=== PATIENT | male | born 1960 | race Caucasian/White ===

== ENCOUNTER 2017-07-02 15:52 | Emergency (ER) | payer BC ==
--- NOTE | 2017-07-02 15:58 | EDM.PDOC ---
ED HPI GENERAL MEDICAL PROBLEM - General Chief Complaint: Upper Extremity Injury/Pain Stated Complaint: R SHOULDER INJURY Time Seen by Provider: 07/02/17 15:57 - History of Present Illness INITIAL COMMENTS - FREE TEXT/NARRATIVE: 49-year-old male presents emergency room with right shoulder pain. The patient shortly before arrival thought he dislocated his shoulder he managed to get back into the place it when into place with a pretty loud and perceptive thump he felt a little better after this. The patient has had right shoulder problems over the last year he's been to physical therapy and this seemed to help he reinjured it but this got better pretty quickly. This evening the patient was working with a bowl then turned on him and started coming after him the patient thought his arm went up I actually did see the video this and it's remarkable that the patient does not have any other injuries. The patient did fall backwards and had his arm up at the time the bowl did not go or the patient or hit him with its extremities. The patient does not have chest pain chest pressure no abdominal pain or discomfort. He did not hit his head no loss of consciousness other 3 extremities are otherwise doing well. Right Shoulder Pain Score (Numeric/FACES): 8 - Related Data Allergies Allergy/AdvReac Type Severity Reaction Status Date / Time No Known Allergies Allergy Verified 07/02/17 16:03 Home Meds: Home Meds . [No Known Home Meds] 07/02/17 [History] Past Medical History - Past Health History Medical/Surgical History: Denies Medical/Surgical History Social & Family History - Tobacco Use Second Hand Smoke Exposure: No - Alcohol Use Days Per Week of Alcohol Use: 1 Number of Drinks Per Day: 1 Total Drinks Per Week: 1 - Recreational Drug Use Recreational Drug Use: No Review of Systems - Review of Systems Review Of Systems: See Below Constitutional: Reports: No Symptoms Eyes: Reports: No Symptoms Nose: Reports: No Symptoms Mouth/Throat: Reports: No Symptoms Respiratory: Reports: No Symptoms Cardiovascular: Reports: No Symptoms GI/Abdominal: Reports: No Symptoms Genitourinary: Reports: No Symptoms Musculoskeletal: Reports: Shoulder Pain. Denies: Arm Pain, Leg Pain Neurological: Reports: No Symptoms ED EXAM, GENERAL - Physical Exam Exam: See Below Exam Limited By: No Limitations General Appearance: Alert, No Apparent Distress Head: Atraumatic, Normocephalic Neck: Normal Inspection, Supple, Non-Tender, Full Range of Motion Respiratory/Chest: No Respiratory Distress, Lungs Clear, Normal Breath Sounds Cardiovascular: Regular Rate, Rhythm, No Edema, No Murmur Extremities: Other (He has discomfort over his right shoulder other extremities are otherwise unremarkable. Close aches amylase to the right upper to be shows normal neurologic and vascular status however he does not want to move his shoulder because it hurts. Passive range of motion with knee support he was shoulder is achieved to about 50% of his normal external rotation internal rotation is normal I can gently bring his arm up to about 60 abduction and then he starts to develop some discomfort. It was not pushed beyond this. He has no palpatory discomfort over the clavicle his shoulder it is not tender with palpation no obvious deformity) Course - Vital Signs Last Recorded V/S: Last Vital Signs Temp 37.2 C 07/02/17 15:57 Pulse 84 07/02/17 15:57 Resp 18 07/02/17 15:57 BP 170/109 H 07/02/17 15:57 Pulse Ox 100 07/02/17 15:57 - Orders/Labs/Meds Orders: Active Orders 24 hr Category Date Time Status Shoulder Comp Rt [CR] Stat Exams 07/02/17 16:07 Taken Meds: Medications Discontinued Medications Generic Name Dose Route Start Last Admin Trade Name Vladimir PRN Reason Stop Dose Admin Ketorolac Tromethamine 30 mg 07/02/17 16:12 07/02/17 16:19 Toradol IM 07/02/17 16:13 30 mg ONETIME ONE Administration - Re-Assessments/Exams Free Text/Narrative Re-Assessment/Exam: 07/02/17 18:05 X-ray examination shoulder shows no acute fracture dislocation good alignment of the shoulder. The patient will be placed in a sling. He is doing much better after receiving Toradol. He thinks he will do just fine on ibuprofen in the sling he agrees to follow-up in the clinic early this next week. Strong consideration should be given to MRI of the shoulder. Departure - Departure Time of Disposition: 18:06 Disposition: Home, Self-Care 01 Clinical Impression: Right shoulder injury - Discharge Information Referrals: Curly Elena MD [Primary Care Provider] - Forms: ED Department Discharge Additional Instructions: Return to the emergency room with any questions problems or worsening symptoms. Wear the sling pretty much all the time. Ibuprofen up to 800 mg 3 times daily with meals for discomfort. Follow-up in the clinic on Tuesday or Tuesday. - My Orders Last 24 Hours: My Active Orders 07/02/17 16:07 Shoulder Comp Rt [CR] Stat - Assessment/Plan Last 24 Hours: My Active Orders 07/02/17 16:07 Shoulder Comp Rt [CR] Stat
[2017-07-02 16:02] VITALS: BP 170/109
[2017-07-02] MEDS ORDERED: Ketorolac 30 MG/ML SDV IM ONE (16:12)
--- NOTE | 2017-07-03 08:58 | CR ---
Right shoulder: Three views of the right shoulder were obtained. Comparison: No previous study. Glenohumeral joint appears within normal limits. Mild inferior spurring is seen off the acromioclavicular joint. No acute fracture or dislocation is seen. Impression: 1. Mild inferior spurring off the acromioclavicular joint. 2. Three-view right shoulder study is otherwise unremarkable. Diagnostic code #2
== END 2017-07-02 18:32 | disposition home or self-care (01) ==
LOC: JD.ED 15:52
DX: S49.91XA Unspecified injury of right shoulder and upper arm, initial encounter (principal); W19.XXXA Unspecified fall, initial encounter
CPT/HCPCS: 73030; 96372; 99284; J1885

== ENCOUNTER 2017-08-03 11:38 | Emergency (ER) | payer BC ==
--- NOTE | 2017-08-03 12:31 | EDM.PDOC ---
ED HPI GENERAL MEDICAL PROBLEM - General Chief Complaint: Cardiovascular Problem Stated Complaint: HIGH BP Time Seen by Provider: 08/03/17 12:30 Source of Information: Reports: Patient - History of Present Illness INITIAL COMMENTS - FREE TEXT/NARRATIVE: Patient is here for evaluation of elevated blood pressure. He states that he has always been "borderline" but he has never been on medication for this. Denies any history of MIs or arrhythmias. Patient states that he was at work today at [employer] and did not feel right so one of his coworkers who is also a claim manager checked his blood pressure and it was quite high so he went to see his PCP. He was sent from the clinic to the emergency room for elevated blood pressure 180/100. Patient currently denies any symptoms. He has no shortness of breath or chest pain doesn't feel he had a bit of chest pain yesterday. - Related Data Allergies Allergy/AdvReac Type Severity Reaction Status Date / Time No Known Allergies Allergy Verified 08/03/17 11:49 Home Meds: Home Meds Lisinopril 10 mg PO DAILY #30 tablet 08/03/17 [Rx] Past Medical History - Past Health History Medical/Surgical History: Denies Medical/Surgical History Cardiovascular History: Reports: Heart Murmur Respiratory History: Reports: Sleep Apnea Musculoskeletal History: Reports: Other (See Below) Other Musculoskeletal History: Shoulder problems- goes to PT - Past Surgical History HEENT Surgical History: Reports: Tonsillectomy Social & Family History - Family History Family Medical History: Noncontributory - Tobacco Use Smoking Status *Q: Never Smoker Second Hand Smoke Exposure: No - Caffeine Use Caffeine Use: Reports: Coffee - Alcohol Use Days Per Week of Alcohol Use: 1 Number of Drinks Per Day: 1 Total Drinks Per Week: 1 - Recreational Drug Use Recreational Drug Use: No ED ROS GENERAL - Review of Systems Review Of Systems: See Below Constitutional: Denies: Fever, Chills, Malaise, Weakness, Fatigue HEENT: Reports: No Symptoms Respiratory: Reports: No Symptoms Cardiovascular: Reports: Blood Pressure Problem, Palpitations. Denies: Chest Pain, Dyspnea on Exertion, Edema, Lightheadedness GI/Abdominal: Reports: No Symptoms Musculoskeletal: Reports: Shoulder Pain (Currently in PT for right shoulder injury) Skin: Reports: No Symptoms ED EXAM, GENERAL - Physical Exam Exam: See Below Exam Limited By: No Limitations General Appearance: Alert, WD/WN Throat/Mouth: Normal Inspection, Normal Oropharynx Head: Atraumatic, Normocephalic Neck: Normal Inspection, Supple, Non-Tender Respiratory/Chest: No Respiratory Distress, Lungs Clear, Normal Breath Sounds Cardiovascular: Normal Peripheral Pulses, Regular Rate, Rhythm, Systolic Murmur (I/) Peripheral Pulses: 2+: Posterior Tibial (L), Posterior Tibial (R) Neurological: Alert, Oriented Psychiatric: Normal Affect, Normal Mood Skin Exam: Warm, Dry, Intact EKG INTERPRETATION EKG Date: 08/03/17 Time: 12:00 Rhythm: NSR Rate (Beats/Min): 57 Course - Vital Signs Last Recorded V/S: Last Vital Signs Temp 97 F 08/03/17 11:47 Pulse 55 L 08/03/17 11:47 Resp 16 08/03/17 11:47 BP 180/107 H 08/03/17 11:47 Pulse Ox 97 08/03/17 11:47 - Orders/Labs/Meds Orders: Active Orders 24 hr Category Date Time Status EKG 12 Lead [EKG Documentation Completion] [RC] STAT Care 08/03/17 11:58 Active Labs: Laboratory Tests 08/03/17 08/03/17 08/03/17 Range/Units 11:52 11:52 11:52 WBC 6.68 (4.23-9.07) K/mm3 RBC 5.00 (4.63-6.08) M/mm3 Hgb 15.8 (13.7-17.5) gm/L Hct 44.6 (40.1-51.0) % MCV 89.2 (79.0-92.2) fl MCH 31.6 (25.7-32.2) pg MCHC 35.4 (32.2-35.5) g/dl RDW Std Deviation 40.1 (35.1-43.9) fL Plt Count 157 L (163-337) K/mm3 MPV 10.5 (9.4-12.3) fl Neutrophils % (Manual) 74 H (40-60) % Band Neutrophils % 0 (0-10) % Lymphocytes % (Manual) 17 L (20-40) % Atypical Lymphs % 1 % Monocytes % (Manual) 7 (2-10) % Eosinophils % (Manual) 1 (0.8-7.0) % Basophils % (Manual) 0 L (0.2-1.2) Platelet Estimate Adequate Plt Morphology Comment Normal RBC Morph Comment Normal Sodium 138 (136-145) mEq/L Potassium 3.9 (3.5-5.1) mEq/L Chloride 102 (98-107) mEq/L Carbon Dioxide 26 (21-32) mEq/L Anion Gap 13.9 (5-15) BUN 19 H (7-18) mg/dL Creatinine 1.0 (0.7-1.3) mg/dL Est Cr Clr Drug Dosing 83.14 mL/min Estimated GFR (MDRD) > 60 (>60) mL/min BUN/Creatinine Ratio 19.0 H (14-18) Glucose 93 (74-106) mg/dL Calcium 9.1 (8.5-10.1) mg/dL Magnesium 1.8 (1.8-2.4) mg/dl Total Bilirubin 0.5 (0.2-1.0) mg/dL AST 35 (15-37) U/L ALT 57 (16-63) U/L Alkaline Phosphatase 89 (46-116) U/L Troponin I < 0.017 (0.00-0.056) ng/mL Total Protein 7.2 (6.4-8.2) g/dl Albumin 3.7 (3.4-5.0) g/dl Globulin 3.5 gm/dL Albumin/Globulin Ratio 1.1 (1-2) Urine Color (Yellow) Urine Appearance (Clear) Urine pH (5.0-8.0) Ur Specific [place] (1.005-1.030) Urine Protein (Negative) Urine Glucose (UA) (Negative) Urine Ketones (Negative) Urine Occult Blood (Negative) Urine Nitrite (Negative) Urine Bilirubin (Negative) Urine Urobilinogen (0.2-1.0) Ur Leukocyte Esterase (Negative) Urine RBC (0-5) /hpf Urine WBC (0-5) /hpf Ur Epithelial Cells (0-5) /hpf Urine Bacteria (FEW) /hpf Urine Mucus (FEW) /hpf 08/03/17 Range/Units 13:00 WBC (4.23-9.07) K/mm3 RBC (4.63-6.08) M/mm3 Hgb (13.7-17.5) gm/L Hct (40.1-51.0) % MCV (79.0-92.2) fl MCH (25.7-32.2) pg MCHC (32.2-35.5) g/dl RDW Std Deviation (35.1-43.9) fL Plt Count (163-337) K/mm3 MPV (9.4-12.3) fl Neutrophils % (Manual) (40-60) % Band Neutrophils % (0-10) % Lymphocytes % (Manual) (20-40) % Atypical Lymphs % % Monocytes % (Manual) (2-10) % Eosinophils % (Manual) (0.8-7.0) % Basophils % (Manual) (0.2-1.2) Platelet Estimate Plt Morphology Comment RBC Morph Comment Sodium (136-145) mEq/L Potassium (3.5-5.1) mEq/L Chloride (98-107) mEq/L Carbon Dioxide (21-32) mEq/L Anion Gap (5-15) BUN (7-18) mg/dL Creatinine (0.7-1.3) mg/dL Est Cr Clr Drug Dosing mL/min Estimated GFR (MDRD) (>60) mL/min BUN/Creatinine Ratio (14-18) Glucose (74-106) mg/dL Calcium (8.5-10.1) mg/dL Magnesium (1.8-2.4) mg/dl Total Bilirubin (0.2-1.0) mg/dL AST (15-37) U/L ALT (16-63) U/L Alkaline Phosphatase (46-116) U/L Troponin I (0.00-0.056) ng/mL Total Protein (6.4-8.2) g/dl Albumin (3.4-5.0) g/dl Globulin gm/dL Albumin/Globulin Ratio (1-2) Urine Color Light yellow (Yellow) Urine Appearance Clear (Clear) Urine pH 6.5 (5.0-8.0) Ur Specific [place] 1.020 (1.005-1.030) Urine Protein Negative (Negative) Urine Glucose (UA) Negative (Negative) Urine Ketones Negative (Negative) Urine Occult Blood Negative (Negative) Urine Nitrite Negative (Negative) Urine Bilirubin Negative (Negative) Urine Urobilinogen 0.2 (0.2-1.0) Ur Leukocyte Esterase Negative (Negative) Urine RBC 0-5 (0-5) /hpf Urine WBC 0-5 (0-5) /hpf Ur Epithelial Cells Not seen (0-5) /hpf Urine Bacteria Not seen (FEW) /hpf Urine Mucus Not seen (FEW) /hpf - Re-Assessments/Exams Free Text/Narrative Re-Assessment/Exam: Patient's blood pressure elevated on exam, 166/108. He is currently completely asymptomatic. 08/03/17 12:56 Workup in the emergency room was essentially normal. CBC was negative. CMP demonstrated a creatinine of 1.0 and a glucose of 93. Troponin was negative. Chest x-ray demonstrated nothing acute. EKG demonstrates normal sinus rhythm with a rate of 57. Options were discussed with the patient and will start him on medication for his blood pressure as it has been high in the past. Patient does have urinary symptoms which she attributes to aging so will avoid diuretic for now. Will start patient on lisinopril 10 mg daily. He'll follow-up with PCP in the next 10 days or return to emergency room if needed. 08/03/17 13:53 Departure - Departure Time of Disposition: 13:55 Disposition: Home, Self-Care 01 Condition: Good Clinical Impression: Hypertension Qualifiers: Hypertension type: essential hypertension Qualified Code(s): I10 - Essential ( primary) hypertension Prescriptions: Lisinopril 10 mg PO DAILY #30 tablet Referrals: Curly Elena MD [Primary Care Provider] - Forms: ED Department Discharge Additional Instructions: He was evaluated in the emergency room today for high blood pressure. The workup of your heart was essentially normal. You'll be started on lisinopril 10 mg daily to lower your blood pressure. You will need to follow up with your primary provider within 7-10 days for reevaluation of your blood pressure or certainly return to emergency room if you should have any chest pain or worsening of symptoms. - My Orders Last 24 Hours: My Active Orders 08/03/17 11:58 EKG 12 Lead [EKG Documentation Completion] [RC] STAT - Assessment/Plan Last 24 Hours: My Active Orders 08/03/17 11:58 EKG 12 Lead [EKG Documentation Completion] [RC] STAT
--- NOTE | 2017-08-03 13:44 | CR ---
Chest: Two views of the chest were obtained. Comparison: Prior chest x-ray of 01/17/14. Heart size is normal. Tortuous thoracic aorta is seen. Lungs are clear. Bony structures are within normal limits for the patient's age. Impression: 1. Nothing acute is seen on two-view chest x-ray. Diagnostic code #1
[2017-08-03 14:44] VITALS: BP 164/121
== END 2017-08-03 14:29 | disposition home or self-care (01) ==
LOC: JD.ED 11:38
DX: I10 Essential (primary) hypertension (principal)
CPT/HCPCS: 36415; 71046; 71046-26; 80053; 81001; 83735; 84484; 85025; 93005; 99285-25

== ENCOUNTER 2018-09-23 19:20 | Emergency (ER) | payer BC ==
[2018-09-23 19:33] VITALS: BP 141/86
[2018-09-23] MEDS ORDERED: Doxycycline 100 MG Cap PO ONE (19:43)
[2018-09-23] MEDS ORDERED: Diphtheria,Pertussis(Acell),Tetanus Vaccine 0.5 ML Syringe IM ONE (19:43)
--- NOTE | 2018-09-23 20:13 | EDM.PDOC ---
ED HPI GENERAL MEDICAL PROBLEM - General Chief Complaint: Lower Extremity Injury/Pain Stated Complaint: NEEDLE STICK TO LEFT LEG Time Seen by Provider: 09/23/18 19:30 - History of Present Illness INITIAL COMMENTS - FREE TEXT/NARRATIVE: 58-year-old male presents emergency room with a puncture wound to his left thigh patient was vaccinating cattle. An hour before arrival patient was actually cattle usin bovine virus diarrhea vaccine Mannheimia heamolytica toxoid. He has some into his left lower thigh lateral aspect he has some discomfort around his knee. He is uncertain when his last tetanus shot was. No other associated injuries Left Upper Leg Pain Score (Numeric/FACES): 8 - Related Data Allergies Allergy/AdvReac Type Severity Reaction Status Date / Time No Known Allergies Allergy Verified 08/03/17 11:49 Home Meds: Home Meds Losartan [Cozaar] 0 mg PO DAILY 09/23/18 [History] amLODIPine [Norvasc] 0 mg PO DAILY 09/23/18 [History] atorvaSTATin [Lipitor] 0 mg PO DAILY 09/23/18 [History] Past Medical History - Past Health History Medical/Surgical History: Denies Medical/Surgical History Cardiovascular History: Reports: Heart Murmur, High Cholesterol, Hypertension Respiratory History: Reports: Sleep Apnea Musculoskeletal History: Reports: Other (See Below) Other Musculoskeletal History: Shoulder problems- - Past Surgical History HEENT Surgical History: Reports: Tonsillectomy Musculoskeletal Surgical History: Reports: Other (See Below) Other Musculoskeletal Surgeries/Procedures:: back surgery for bulge disc Social & Family History - Family History Family Medical History: Noncontributory - Tobacco Use Smoking Status *Q: Never Smoker - Caffeine Use Caffeine Use: Reports: Coffee - Recreational Drug Use Recreational Drug Use: No Review of Systems - Review of Systems Review Of Systems: See Below Constitutional: Reports: No Symptoms Respiratory: Reports: No Symptoms Cardiovascular: Reports: No Symptoms GI/Abdominal: Reports: No Symptoms Genitourinary: Reports: No Symptoms Neurological: Reports: No Symptoms ED EXAM, GENERAL - Physical Exam Exam: See Below Exam Limited By: No Limitations General Appearance: Alert, No Apparent Distress Head: Atraumatic, Normocephalic Neck: Normal Inspection, Supple, Non-Tender, Full Range of Motion Respiratory/Chest: No Respiratory Distress, Lungs Clear, Normal Breath Sounds, No Accessory Muscle Use, Chest Non-Tender Cardiovascular: Normal Peripheral Pulses, Regular Rate, Rhythm, No Edema, No Gallop, No JVD, No Murmur, No Rub GI/Abdominal: Normal Bowel Sounds, Soft, Non-Tender Extremities: Other (Examination of his thigh mid lateral anterior aspect clean puncture wound. He has some discomfort below his knee but really none around the puncture wound. Neurovascular status of the foot is otherwise unremarkable) Course - Vital Signs Last Recorded V/S: Last Vital Signs Temp 37.4 C 09/23/18 19:31 Pulse 88 09/23/18 19:31 Resp 20 09/23/18 19:31 BP 141/86 H 09/23/18 19:31 Pulse Ox 95 09/23/18 19:31 - Orders/Labs/Meds Orders: Active Orders 24 hr Category Date Time Status Vaccines to be Administered [RC] PER UNIT ROUTINE Care 09/23/18 19:43 Active Meds: Medications Discontinued Medications Generic Name Dose Route Start Last Admin Trade Name Freq PRN Reason Stop Dose Admin Diphtheria/Tetanus/Acell Pertussis 0.5 ml 09/23/18 19:43 09/23/18 19:51 Adacel IM 09/23/18 19:44 0.5 ml .ONCE ONE Administration Doxycycline Hyclate 100 mg 09/23/18 19:43 09/23/18 19:52 Vibramycin PO 09/23/18 19:44 100 mg ONETIME ONE Administration - Re-Assessments/Exams Free Text/Narrative Re-Assessment/Exam: 09/23/18 20:19 Case discussed with poison control recommendations update tetanus but he shouldn 't have any problems from the vaccine itself Departure - Departure Time of Disposition: 20:19 Disposition: Home, Self-Care 01 Clinical Impression: Puncture wound of left thigh - Discharge Information Referrals: Lisa Hylton NP [Primary Care Provider] - Forms: ED Department Discharge Additional Instructions: Return to the emergency room with any questions problems worsening symptoms. Follow-up with her regular provider middle this next week. Tylenol or ibuprofen as needed for the discomfort - My Orders Last 24 Hours: My Active Orders 09/23/18 19:43 Vaccines to be Administered [RC] PER UNIT ROUTINE - Assessment/Plan Last 24 Hours: My Active Orders 09/23/18 19:43 Vaccines to be Administered [RC] PER UNIT ROUTINE
== END 2018-09-23 20:25 | disposition home or self-care (01) ==
LOC: JD.ED 19:20
DX: S71.131A Puncture wound without foreign body, right thigh, initial encounter (principal); Z23 Encounter for immunization; X58.XXXA Exposure to other specified factors, initial encounter
CPT/HCPCS: 90471; 90700; 99282; A9270; 99283

== ENCOUNTER 2021-10-09 13:46 | Emergency (ER) | payer BC ==
[2021-10-09] MEDS ORDERED: Sodium Chloride 0.9% 10 ML Syringe FLUSH PRN (14:00)
[2021-10-09 15:48] VITALS: BP 148/97; PULSE 54
== END 2021-10-09 15:48 | disposition home or self-care (01) ==
LOC: JD.ED 13:46
DX: R20.2 Paresthesia of skin (principal); E78.00 Pure hypercholesterolemia, unspecified; I10 Essential (primary) hypertension; E66.9 Obesity, unspecified; Z68.30 Body mass index [BMI] 30.0-30.9, adult; Z79.899 Other long term (current) drug therapy
CPT/HCPCS: 36415; 71045; 80053; 83735; 83880; 84484; 85025; 85379; 85610; 85730; 93005; 99284; J3490